=== PATIENT | male | born 1945 | race Caucasian/White ===

== ENCOUNTER → 2020-09-08 14:39 | Observation (INO) ==
[2020-09-07] MEDS: NORMAL SALINE 1,000 ML IV PRN ×3 (01:38→17:48)
[2020-09-07] MEDS: ESCITALOPRAM OXALATE 5 MG TABLET PO SCH (10:03)
--- NOTE | 2020-09-07 15:40 | HP ---
Chief Complaint - Chief Complaint Date of Service: 09/07/20 Time of Service: 10:31 Chief Complaint: Altered mental status, UTI History of Present Illness: 75-year-old male with frontal dementia was brought in through [facility] after he was found acting different, slightly unresponsive to nursing staff that is mcc. had confirmed the ER doctor that this was abnormally active that he was slightly more conversant and up and about where last night he was just laid in his bed and not really responding. Patient does have fairly significant frontal dementia and is not very conversant anyways but his behavior was different than previous. Patient at the ER hospital is found to have a UTI and an elevated white count greater than 19. He did not look toxic and the rest of his vitals were stable. Patient was given a dose of Rocephin while there. History obtained from ER physician was treating him. Patient had fairly dirty urine including white blood cells, red blood cells, positive nitrates. Patient was transferred here due to availability Medical History (Last Updated 09/07/20 @ 03:17 by Ellen Ferro RN) Anxiety BPH (benign prostatic hyperplasia) Calculus, kidney Frontal dementia GERD (gastroesophageal reflux disease) Hypercholesteremia Insomnia Osteoarthritis Restless leg syndrome S/P extracorporeal shock wave therapy Surgical History: Surgical History (Last Updated 09/07/20 @ 03:17 by Ellen Ferro RN) S/P TURP Family History: Family History (Last Updated 09/07/20 @ 03:19 by Ellen Ferro RN) Father Prostate cancer Family/Other Osteoporosis Family/Other Hypertension Family/Other Acute asthma Family/Other Diabetes Social History: (Last Updated 09/07/20 @ 03:20 by Ellen Ferro RN) Tobacco: Smoking Status: Never smoker Alcohol: Alcohol type: beer alcohol intake frequency: a few times a week Review Of Systems (GEN) - Review of Systems Additional Comments: Patient did not respond to my questions, just looked at me when I examined him. Allergies/Adverse Reactions: Allergies Allergy/AdvReac Type Severity Reaction Status Date / Time No Known Allergies Allergy Unverified 09/07/20 01:06 Home Medications: HOME MEDICATIONS Acetaminophen 500 mg PO PRN 09/07/20 [Last Taken Unknown] Escitalopram Oxalate 5 mg PO 09/07/20 [Last Taken 1 Day Ago ~09/06/20 5 mg] Melatonin/Pyridoxine HCl (B6) [Melatonin 5 mg Tablet] 5 mg PO DAILY 09/07/20 [Last Taken 2 Days Ago ~09/05/20] Polyethylene Glycol 3350 [Miralax] 17 gm PO DAILY 09/07/20 [Last Taken Unknown] Zinc Oxide [Boudreauxs] 10 gm TP PRN 09/07/20 [Last Taken Unknown] risperiDONE [Risperdal] 0.5 mg PO DAILY 09/07/20 [Last Taken Unknown] Exam - Exam Vital Signs: Vital Signs - Last Taken Temp 37.5 C 09/07/20 14:19 Pulse 75 09/07/20 14:19 Resp 20 09/07/20 14:19 BP 116/50 09/07/20 14:19 Pulse Ox 94 09/07/20 14:19 Constitutional: Present: Alert, No distress, Elderly Eye Exam: bilateral eye: normal inspection, EOMI Respiratory: Present: lungs clear, normal breath sounds Cardiovascular/Chest: Present: regular rate, rhythm, no murmur Abdomen: Present: soft, nontender, nondistended. Absent: suprapubic tenderness Extremity: Present: normal inspection. Absent: lower extremity edema Skin Exam: Present: normal color, warm/dry Appearance: Present: impaired insight, impaired recent memory, other - Patient did not respond to questions Assessment/Plan - Narrative Narrative: Awaiting for culture results from [place]. Once speciation is available will de-escalate antibiotic treatment. Continue Rocephin every 24 hours at this time. Patient is stable though and likely can be discharged home tomorrow if there is no changes in his clinical picture. His vital signs been stable aside from a mild fever that responded to Tylenol. Will repeat CBC CMP in the morning. Continue antibiotics, Tylenol as needed Continue risperidone for behavioral issues from his dementia. No other history available at this time. Regular diet ordered. Nurse to call questions or concerns. - Assessment/Plan (1) UTI (urinary tract infection) Problem: Acute (2) Frontal dementia Problem: Acute
[2020-09-08] MEDS: NORMAL SALINE 1,000 ML IV PRN ×2 (02:19→10:30)
[2020-09-08 06:31] LABS: Hematocrit 40.8 % (42.0-52.0); Hemoglobin 13.4 gm/dL (13.5-18.0); Mean Cell Volume 92.1 fl (78-100); Mean Corpuscular Hemoglobin 30.2 pg (27-31); Mean Corpuscular Hgb Conc 32.8 g/dl (32-36); Mean Platelet Volume 9.9 fl (8-11.3); Neutrophil % 82.6 % (42-75.0); Platelet Count 197 K/mm3 (150-450); Red Blood Count 4.43 M/mm3 (4.7-6.0); Red Cell Distribution Width 13.4 % (11.5-14.0); White Blood Count 14.6 K/mm3 (4.0-10.5)
[2020-09-08 06:53] LABS: Albumin * 2.7 gm/dl (3.4-5.0); Anion Gap 12.6 mmol/L (6.8-13.8); BUN/Creatinine Ratio 10.8 (9.0-21.6); Bilirubin, Total 0.6 mg/dL (0.0-1.1); Calcium * 8.3 mg/dL (7.9-10.9); Carbon Dioxide 25.1 mmol/L (24-32.6); Potassium 3.7 mmol/L (3.4-4.6); Total Protein 6.6 gm/dL (6.2-8.2)
[2020-09-08] MEDS: ESCITALOPRAM OXALATE 5 MG TABLET PO SCH (08:37)
--- NOTE | 2020-09-08 11:24 | DS ---
(1) UTI (urinary tract infection) Problem: Acute (2) Frontal dementia Problem: Acute Date of Discharge:: 09/08/20 Hospital Course: 75-year-old male with fairly advanced frontal dementia was admitted to the hospital after acting "different, more sluggish "at his care home. He was found to have a UTI by the ER physician at [facility] and was started on Rocephin. He did have an elevated white count at greater than 19. Today when examined he was much more appropriate and interactive though he is only alert to himself. But he did answer a few questions with one-word answers. On exam he was not tender over his belly. No other history on him besides this. Because he is stable and looks better we will send him home on Cipro for an additional 5 days. Patient can follow-up with his PCP in 1-2 weeks. Vital signs been stable though he did have minor temperature this morning at 100.6. We will also make sure he is on Tylenol when he is discharged. No changes to his current medications. Procedures Performed: none Results and Findings: Lab Pending Results 09/08/20 06:15: WBC 14.6 H, RBC 4.43 L, Hgb 13.4 L, Hct 40.8 L, MCV 92.1, MCH 30.2, MCHC 32.8, RDW 13.4, Plt Count 197, MPV 9.9, Immature Gran % (Auto) 0.30, Immature Gran # (Auto) 0.05 H, Neutrophils % 82.6 H, Lymphocytes % 8.8 L, Monocytes % 7.8, Eosinophils % 0.4, Basophils % 0.1, Nucleated RBC % 0.0, Neutrophils # 12.0 H, Lymphocytes # 1.28 L, Monocytes # 1.1 H, Eosinophils # 0.1, Absolute Basophils 0.0 09/08/20 06:15: Sodium 139, Plasma Sodium 139, Potassium 3.7, Chloride 105, Carbon Dioxide 25.1, Anion Gap 12.6, BUN 9, Creatinine 0.83, Est GFR (Non-Af Amer) 96, BUN/Creatinine Ratio 10.8, Random Glucose 115 H, Calcium 8.3, Calcium Adj for Albumin 9.0, Total Bilirubin 0.6, AST 18, ALT 19, Alkaline Phosphatase 82, Total Protein 6.6, Albumin 2.7 L Discharge Location: Other - [place] Custodial-SNF Disposition: SNF Condition: Stable Level of Care: SNF Discharge Activity: Activity as tolerated Discharge Diet: General/regular food Custodial Therapy: Physical Therapy, Occupation Therapy, Speech Therapy Additional Patient Instructions (free text): Return to [facility]- PT, OT, speech therapy. Fax discharge to [phone] and call report to [phone]. Prescriptions (Any new or edited meds): Ciprofloxacin HCl [Cipro] 500 mg PO BID #10 tab Transmission Status: Pending to [facility] Complete Home Medications List: Complete Home Medication List: Acetaminophen 500 mg PO PRN 09/07/20 Escitalopram Oxalate 5 mg PO 09/07/20 Melatonin/Pyridoxine HCl (B6) [Melatonin 5 mg Tablet] 5 mg PO DAILY 09/07/20 Polyethylene Glycol 3350 [Miralax] 17 gm PO DAILY 09/07/20 Zinc Oxide [Boudreauxs] 10 gm TP PRN 09/07/20 risperiDONE [Risperdal] 0.5 mg PO DAILY 09/07/20 Ciprofloxacin HCl [Cipro] 500 mg PO BID #10 tab 09/08/20
[2020-09-08 14:39] VITALS: BP 114/63
[~2020-09-08 14:39] MED LIST: ACETAMINOPHEN 1,000 MG/100 ML BTL IV ONE; ACETAMINOPHEN 500 MG TABLET PO PRN; ACETAMINOPHEN 500 MG TABLET PO SCH; POLYETHYLENE GLYCOL 3350 17 GM PACKET PO SCH; risperiDONE 0.25 MG TABLET PO SCH
== END ==
LOC: MS
PROVIDERS: ADMIT Family Medicine; ATTEND Family Medicine